=== PATIENT | male | born 1990 | race Hispanic/Latino ===

== ENCOUNTER 2018-07-15 18:12 | Emergency (ER) | payer SELFPAY ==
[2018-07-15 18:18] VITALS: BMI 25.1
[2018-07-15 18:19] VITALS: BP 127/86; PULSE 69; RESP 18; TEMP 98.9; O2SAT 99
--- NOTE | 2018-07-15 18:51 | ED PDOC ---
HPI: CCC, URI, Sore Throat Time Seen by Provider: 07/15/18 18:23 Chief Complaint (Nursing): ENT Problem Chief Complaint (Provider): dental pain History Per: Patient History/Exam Limitations: no limitations Onset/Duration Of Symptoms: Days Current Symptoms Are (Timing): Still Present Associated Symptoms: Sore Throat. denies: Fever, Chills Additional Complaint(s): Pt. is a healthy 28 y/o Male who presents to ED with multiple complaints including dental pain, sorethroat, noticing "craters" on his tonsils, and also a small bump to his left forearm. Pt. is visiting from [place]. He saw a dentist in [facility] this past week, was started on abx, and was recommended to have wisdom teeth removed at some point. Pt. denies fevers and is tolerating po well. Past Medical History Vital Signs: Last Vital Signs Temp 98.9 F 07/15/18 18:18 Pulse 69 07/15/18 18:18 Resp 18 07/15/18 18:18 BP 127/86 07/15/18 18:18 Pulse Ox 99 07/15/18 18:18 - Medical History PMH: No Chronic Diseases - Surgical History Surgical History: No Surg Hx - Family History Family History: States: Unknown Family Hx - Allergies Allergies/Adverse Reactions: Allergies Allergy/AdvReac Type Severity Reaction Status Date / Time No Known Allergies Allergy Verified 07/15/18 18:18 Review of Systems Constitutional: Negative for: Fever, Chills ENT: Positive for: Mouth Pain, Throat Pain. Negative for: Ear Pain, Nose Discharge Skin: Positive for: Other (bump to left arm) Physical Exam - Reviewed Vital Signs Reviewed: Yes - Physical Exam Appears: Positive for: Well, Non-toxic Head Exam: Positive for: ATRAUMATIC Skin: Positive for: Normal Color, Warm, Dry, Rash (LEFT FOREARM: small nontender mobile subcutaneous nodule <1cm, with no erythema, induration, fluctuance. ) ENT: Positive for: Pharynx Is (normal (-) erythema), Other (Dental: (+) cracked and mildly tender right maxillar and mandibular molars with no gingival swelling and no dental abscess). Negative for: Tonsillar Exudate (tonsillar crypts with no stones, (-) exudates.) Cardiovascular/Chest: Positive for: Regular Rate, Rhythm Respiratory: Positive for: Normal Breath Sounds - ECG O2 Sat by Pulse Oximetry: 99 Medical Decision Making Medical Decision Making: Pt. well appearing, nontoxic. Not in any sig pain, just wanted to get checked. He will f/u with his doctor and dental when he gets back to [place]. Advised to continue abx. as prescribed Disposition - Clinical Impression Clinical Impression: Pain, dental, Skin nodule - Patient ED Disposition Is Patient to be Admitted: No Counseled Patient/Family Regarding: Diagnosis, Need For Followup - Disposition Disposition: Routine/Home Disposition Time: 18:56 Condition: STABLE Instructions: Epidermal Cyst (DC), Dental Pain (DC)
== END 2018-07-15 19:10 | disposition home or self-care (01) ==
LOC: H.ER 18:12
DX: K08.89 Other specified disorders of teeth and supporting structures (principal); R22.31 Localized swelling, mass and lump, right upper limb